=== PATIENT | male | born 1995 | race Two or more races ===

== ENCOUNTER 2023-12-09 11:37 | Emergency (ER) | payer SELFPAY ==
[~2023-12-09] VITALS: Ht 170.2 cm; Wt 68.2 kg
[2023-12-09 11:42] VITALS: BP 115/72; PULSE 56; RESP 18; TEMP 98.8; O2SAT 100
== END 2023-12-09 12:53 | disposition left against medical advice (07) ==
LOC: EMS 11:37
DX: R10.9 Unspecified abdominal pain (principal); Z53.21 Procedure and treatment not carried out due to patient leaving prior to being seen by health care provider